=== PATIENT | male | born 1965 | race Caucasian/White ===

== ENCOUNTER 2019-04-15 08:27 | Inpatient (IN) | payer BC ==
[~2019-04-15] VITALS: Ht 170.2 cm; Wt 121.1 kg
[2019-04-15 08:31] VITALS: Ht 170.2 cm; Wt 121.1 kg
[2019-04-15 09:12] LABS: CALCIUM 8.8 mg/dL (8.5-10.1); CHLORIDE SERUM 104 mmol/L (98-107); CREATININE SERUM 0.9 mg/dL (0.7-1.3); GFR1 > 60 mL/min; GLUCOSE SERUM 106 mg/dL (74-106); SODIUM SERUM 139 mmol/L (136-145)
[2019-04-15 09:14] LABS: ALBUMIN 3.7 g/dL (3.4-5.0); ALKALINE PHOSPHATASE 63 U/L (46-116); ALT/SGPT 58 U/L (16-63); AST/SGOT 23 U/L (15-37); BILIRUBIN TOTAL 0.55 mg/dL (0.20-1.00); TOTAL PROTEIN, SERUM 7.5 g/dL (6.4-8.2)
[2019-04-15 09:25] LABS: FREE T4 1.02 ng/dL (0.76-1.46); FREE THYROXINE INDEX 2.9 ug/dL (1.4-4.5); T4(THYROXINE) 8.4 ug/dL (4.7-13.3)
[2019-04-15 09:27] LABS: T3 TOTAL 1.38 ng/mL
[2019-04-15 09:42] LABS: BASOPHIL % 0.3 % (0-2); PLATELET COUNT 182 x10^3mcL (130-400)
[2019-04-15 10:14] LABS: AMPHETAMINE QUAL UR NONE DETECTED (See below)
[2019-04-15 14:18] VITALS: BP 130/71
[2019-04-15 15:35] VITALS: BP 135/79
[2019-04-15 20:53] VITALS: BP 117/53
[2019-04-16 05:06] VITALS: BP 115/65
[2019-04-16 06:38] LABS: BASOPHIL % 0.4 % (0-2); PLATELET COUNT 166 x10^3mcL (130-400); RED CELL DISTRIBUTION WIDTH 13.7 % (11.5-14.5)
[2019-04-16 06:49] LABS: CALCIUM 8.1 mg/dL (8.5-10.1); CARBON DIOXIDE 26.7 mmol/L (21-32); CHLORIDE SERUM 106 mmol/L (98-107); CREATININE SERUM 0.9 mg/dL (0.7-1.3); GFR1 > 60 mL/min; GLUCOSE SERUM 96 mg/dL (74-106); POTASSIUM SERUM 4.3 mmol/L (3.5-5.1); SODIUM SERUM 141 mmol/L (136-145)
[2019-04-16 08:01] VITALS: BP 118/66
[2019-04-16] MEDS ORDERED: METOPROLOL TART25 M1 PO (11:48)
[2019-04-16 12:07] VITALS: BP 111/70
== END 2019-04-16 14:03 | disposition home or self-care (01) | DRG 309 ==
LOC: ED 08:27 → DU 12:45
PROVIDERS: Emergency Medicine; ADMIT Internal Medicine
DX: I49.1 Atrial premature depolarization (principal); Z68.41 Body mass index [BMI] 40.0-44.9, adult; E66.9 Obesity, unspecified; Z71.3 Dietary counseling and surveillance
CPT/HCPCS: 84439; 90658; C9113; G0378; Q0092